=== PATIENT | female | born 1970 | race Hispanic/Latino ===

== ENCOUNTER → 2018-01-11 | Outpatient (CLI) | payer OTHER ==
--- NOTE | 2018-01-11 17:29 | Diagnostic Imaging Report ---
PROCEDURE:X-RAY ABDOMEN - KUB COMPARISON:Patients [facility], DX, ABDOMEN-1VIEW (KUB), 07/15/2017, 15:51. INDICATIONS:KIDNEY STONES FINDINGS: There are no dilated loops of bowel to suggest obstruction. 0.3 cm calcific density projected on the lower pole right renal shadow. Possible additional punctate calculus in the interpolar region of the right kidney. There is no evidence of free air. No acute osseous abnormalities are present. An IUD is again observed to the right of the midline. Large calcified leiomyoma again noted. CONCLUSION: Stable 0.3 cm right lower pole renal calculus. Mo Hernandez M.D. Dictated by: Mo Hernandez M.D. on 01/11/2018 at 17:30 Electronically approved by: Mo Hernandez M.D. on 01/11/2018 at 17:30
== END ==
LOC: RAD 15:58
PROVIDERS: ATTEND Urology
DX: N20.0 Calculus of kidney (principal)
CPT/HCPCS: 74018

== ENCOUNTER → 2018-07-31 | Outpatient (CLI) | payer OTHER ==
--- NOTE | 2018-08-01 09:21 | Diagnostic Imaging Report ---
Exam: Abdominal film Clinical History: Calculus of kidney Comparison: None. DISCUSSION: Frontal view of the abdomen shows a nonobstructive bowel gas pattern with mild amount of retained stool. No dilated, air-filled loops of bowel. 3 mm calcification overlying the right mid kidney and 4 mm calcification overlying the right inferior kidney. Calcified fibroid measuring 7.8 cm. IMPRESSION: Right nephrolithiasis. Signed by: Dr. Musa Urbina M.D. on 08/01/2018 9:18 AM
== END ==
LOC: RAD 16:12
PROVIDERS: ATTEND Urology
DX: N20.0 Calculus of kidney (principal)
CPT/HCPCS: 74018

== ENCOUNTER → 2018-11-13 | Outpatient (CLI) | payer OTHER ==
--- NOTE | 2018-11-13 15:08 | Diagnostic Imaging Report ---
Exam: Abdominal film Clinical History: Right-sided abdominal pain for one year, calculus of kidney Comparison: KUB 07/31/2018 DISCUSSION: Frontal view of the abdomen shows a nonobstructive bowel gas pattern with mild amount of retained stool.There are no dilated, air-filled loops of bowel. Stable 4 mm calcific density projecting over the inferior aspect of the right renal shadow. Stable 3 mm calcific density projecting in the mid aspect of the right renal shadow. No radiopaque densities project over the right renal shadow, expected course of the ureters or bladder. Stable 6.9 x 6.6 cm calcified uterine fibroid projecting in the mid pelvis. Stable T shaped metallic IUD projecting in the mid pelvis. No acute bone abnormality. IMPRESSION: 1. Stable nonobstructing calculi in the right kidney. No new calculi are identified. The staff physician below has personally reviewed this exam on the date of dictation. Signed by: Dr. Fabiano Drew M.D. on 11/13/2018 3:05 PM
== END ==
LOC: RAD 14:17
PROVIDERS: ATTEND Urology
DX: N20.0 Calculus of kidney (principal)
CPT/HCPCS: 74018

== ENCOUNTER → 2019-03-22 | Outpatient (CLI) | payer OTHER ==
--- NOTE | 2019-03-22 18:48 | Diagnostic Imaging Report ---
RADIOGRAPH(S) OF THE ABDOMEN AND PELVIS, 2 view(s) HISTORY: Kidney stones, pain, right COMPARISON: Abdominal radiograph November 13, 2018 FINDINGS: No specific evidence of obstruction or ileus. Stable 3 mm calcification projecting at the interpolar region of the right kidney and 4 mm calcific density projecting near the inferior pole. Evaluation is partially limited by by stool and overlying bowel gas. Stable appearing intrauterine device and degenerating calcified fibroid. IMPRESSION: 1. Stable appearing right renal stones. 2. No significant radiographic change. Signed by: Dr. Joby Vance D.O., M.M.M. on 03/22/2019 6:44 PM
== END ==
LOC: RAD 16:37
PROVIDERS: ATTEND Urology
DX: N20.0 Calculus of kidney (principal)
CPT/HCPCS: 74018

== ENCOUNTER → 2019-05-04 | Day surgery (SDC) | payer OTHER ==
--- NOTE | 2019-05-01 12:14 | Diagnostic Imaging Report ---
Abdomen, 2 views. History: Stones. Comparison: 03/22/2019 Findings: The intestinal gas pattern is nonobstructive. There are small punctate stones overlying the upper pole, mid pole and lower pole of the right kidney. No definite left renal stones identified. Again identified is a large calcified uterine fibroid and an IUD device in the pelvis. The osseous structures are intact. IMPRESSION: Small punctate right renal stones. Signed by: Dr. Caleb Ibrahim DO on 05/01/2019 12:10 PM
[~2019-05-04] MED LIST: AMLODIPINE BESYL5 MG PO; ASPIR 8181 MG PO; CEFTRIAXONE SOD 1 GM/NS 50 ML 50 ML IV ONE; DEXAMETHASONE SOD PHOS INJ 4 MG/ML VIAL ONE; EXCEDRIN MIGRA1 EAC3 PO; FENTANYL CITRATE/PF 100MCG/2 ML INJ ONE; IOPAMIDOL 610MG/1ML 300 MG/ML VIAL IV ONE; LIDOCAINE HCL 2% LOCAL INJ 5 ML SDV VIAL INJ ONE; MIDAZOLAM HCL 2 MG/2 ML VIAL ONE; ONDANSETRON HCL INJ 2MG/ML 2ML 2 MG/ML VIAL ONE; PROPOFOL IV EMULSION 10 MG/ML 20 ML VIAL ONE; SEVOFLURANE INHAL SOLN 250 ML PEN BTL ONE
--- OUTSIDE RECORDS SUMMARY | 2019-05-04 05:41 | XMS REPORT ---
Author Author Marvin Winters Organization [employer] Address Unknown Phone Unavailable Care Team Providers Care Medical Claims Manager Name Role Phone Marvin Winters CP Unavailable Allergies, Adverse Reactions, Alerts Substance Reaction Event Type N.K.D.A. Info Not Available Non Drug Allergy Problems Problem Type Condition Code Onset Dates Condition Status Problem Hypoglycemia, unspecified E16.2 Active Problem IUD (intrauterine device) in place Z97.5 Active Problem Fibroids, submucosal D25.0 Active Problem TB (tuberculosis), treated A15.9 Active Assessment Cervical cancer screening Z12.4 Active Problem Vitamin D deficiency E55.9 Active Assessment Breast cancer screening Z12.39 Active Assessment Screening cholesterol level Z13.220 Active Problem Seasonal allergic rhinitis due to pollen J30.1 Active Problem Cervical cancer screening Z12.4 Active Problem Bilateral carpal tunnel syndrome G56.03 Active Problem Essential hypertension I10 Active Problem Breast cancer screening Z12.39 Active Assessment Fibroids, submucosal D25.0 Active Assessment Bilateral carpal tunnel syndrome G56.03 Active Assessment Seasonal allergic rhinitis due to pollen J30.1 Active Assessment Vitamin D deficiency E55.9 Active Assessment Carpal tunnel syndrome, unspecified upper limb G56.00 Active Assessment Annual physical exam Z00.00 Active Assessment IUD (intrauterine device) in place Z97.5 Active Problem Personal history of gestational diabetes Z86.32 Active Assessment Personal history of gestational diabetes Z86.32 Active Problem Carpal tunnel syndrome, unspecified upper limb G56.00 Active Medications Medication Code System Code Instructions Start Date End Date Status Dosage Gabapentin [facility] 64661929167 100 MG Orally bedtime May 09, 2018 Active 2 capsules Fexofenadine HCl [facility] 25243761224 180 MG Orally Once a day Active 1 tablet as needed Amlodipine Besylate [facility] 33010019985 5 MG Orally Once a day Active 1 tablet Gabapentin [facility] 44986609827 300 MG Orally once every night May 09, 2018 Inactive 1 capsule Excedrin Migraine [facility] 80188809744 250-250-65 MG Orally every 6 hrs Active 2 tablets as needed Tramadol HCl NDC 0 asd needed for pain Active not defined Fluticasone Propionate NDC 11127695884 50 MCG/ACT Nasally Once a day January 16, 2018 Active 1 spray in each nostril Vital Signs Date/Time: May 09, 2018 BMI 31.56 Index Weight 151 lbs Height 58 in Temperature 97.4 F Blood Pressure Diastolic 99 mm Hg Blood Pressure Systolic 142 mm Hg Results Name Result Date Reference Range Unit Abnormality Flag LIPID PANEL ----TRIGLYCERIDES 132 [id number] <150 mg/dL N ----LDL-CHOLESTEROL 124 48176163 mg/dL (calc) H ----CHOL/HDLC RATIO 3.4 32986509 <5.0 (calc) N ----NON HDL CHOLESTEROL 149 [id number] <130 mg/dL (calc) H ----CHOLESTEROL, TOTAL 212 28070907 <200 mg/dL H ----HDL CHOLESTEROL 63 70567835 >50 mg/dL N CBC (INCLUDES DIFF/PLT) ----ABSOLUTE EOSINOPHILS 250 91893189 15-500 cells/uL N ----MCV 88.0 65521296 80.0-100.0 fL N ----HEMATOCRIT 43.2 34701782 35.0-45.0 % N ----ABSOLUTE MONOCYTES 589 24058518 200-950 cells/uL N ----MCHC 32.2 13336895 32.0-36.0 g/dL N ----ABSOLUTE LYMPHOCYTES 1651 68909909 850-3900 cells/uL N ----MCH 28.3 39099420 27.0-33.0 pg N ----ABSOLUTE NEUTROPHILS 3859 22734750 4030-8231 cells/uL N ----MONOCYTES 9.2 08538280 % N ----WHITE BLOOD CELL COUNT 6.4 08577559 3.8-10.8 Thousand/uL N ----LYMPHOCYTES 25.8 30196722 % N ----NEUTROPHILS 60.3 31338051 % N ----HEMOGLOBIN 13.9 05812942 11.7-15.5 g/dL N ----ABSOLUTE BASOPHILS 51 19353052 0-200 cells/uL N ----RED BLOOD CELL COUNT 4.91 66638310 3.80-5.10 Million/uL N ----BASOPHILS 0.8 79129547 % N ----MPV 11.0 20180509 7.5-12.5 fL N ----EOSINOPHILS 3.9 20180509 % N ----RDW 13.4 20180509 11.0-15.0 % N ----PLATELET COUNT 283 20180509 140-400 Thousand/uL N COMPREHENSIVE METABOLIC PANEL ----ALBUMIN/GLOBULIN RATIO 1.5 20180509 1.0-2.5 (calc) N ----GLOBULIN 3.0 20180509 1.9-3.7 g/dL (calc) N ----ALKALINE PHOSPHATASE 89 20180509 33-115 U/L N ----BILIRUBIN, TOTAL 0.4 20180509 0.2-1.2 mg/dL N ----CHLORIDE 103 20180509 98-110 mmol/L N ----ALT 14 20180509 6-29 U/L N ----POTASSIUM 4.8 20180509 3.5-5.3 mmol/L N ----AST 16 20180509 10-35 U/L N ----SODIUM 140 20180509 135-146 mmol/L N ----BUN/CREATININE RATIO NOT APPLICABLE 96961198 6-22 (calc) ----eGFR 131 20180509 > OR=60 mL/min/1.73m2 N ----CALCIUM 9.3 20180509 8.6-10.2 mg/dL N ----CARBON DIOXIDE 28 20180509 20-31 mmol/L N ----ALBUMIN 4.6 20180509 3.6-5.1 g/dL N ----PROTEIN, TOTAL 7.6 20180509 6.1-8.1 g/dL N ----GLUCOSE 97 20180509 65-99 mg/dL N ----UREA NITROGEN (BUN) 10 20180509 7-25 mg/dL N ----CREATININE 0.54 20180509 0.50-1.10 mg/dL N ----eGFR NON-AFR. COMORAN 113 20180509 > OR=60 mL/min/1.73m2 N VITAMIN D,25-OH,TOTAL,IA ----VITAMIN D,25-OH,TOTAL,IA 28 20180509 30-100 ng/mL L Summary Purpose [employer] Submission
--- OUTSIDE RECORDS SUMMARY | 2019-05-04 05:41 | XMS REPORT ---
Author Author Marvin Winters Organization [employer] Address Unknown Phone Unavailable Care Team Providers Care Ehs Teacher Name Role Phone Marvin Winters CP Unavailable Allergies, Adverse Reactions, Alerts Substance Reaction Event Type N.K.D.A. Info Not Available Non Drug Allergy Problems Problem Type Condition Code Onset Dates Condition Status Assessment Fibroids, submucosal D25.0 Active Problem IUD (intrauterine device) in place Z97.5 Active Problem Fibroids, submucosal D25.0 Active Problem Bilateral carpal tunnel syndrome G56.03 Active Problem Cervical cancer screening Z12.4 Active Problem Essential hypertension I10 Active Problem Personal history of gestational diabetes Z86.32 Active Problem Hypoglycemia, unspecified E16.2 Active Problem Breast cancer screening Z12.39 Active Problem Carpal tunnel syndrome, unspecified upper limb G56.00 Active Assessment Essential hypertension I10 Active Assessment Acute vaginitis N76.0 Active Assessment Other specified bacterial agents as the cause of diseases classified elsewhere B96.89 Active Assessment Hypoglycemia, unspecified E16.2 Active Medications Medication Code System Code Instructions Start Date End Date Status Dosage Gabapentin [facility] 28462971417 100 MG Active TAKE 2 CAPSULES BY MOUTH EVERY NIGHT Atorvastatin Calcium [facility] [address]-19 10 mg PO every day (qd) February 02, 2016 Active 1 tablet Metronidazole [facility] [address]-43 500 MG Orally every 8 hrs Active 1 tablet Ciprofloxacin HCl [facility] [address]-80 500 MG Orally Twice a day Active 1 tablet Excedrin Migraine [facility] [address]-50 250-250-65 MG Orally every 6 hrs Active 2 tablets as needed Amlodipine Besylate [facility] [address]-77 5 MG Orally Once a day April 08, 2017 Active 1 tablet Vital Signs Date/Time: April 08, 2017 BMI 31.56 Index Weight 151 lbs Height 58 in Temperature 96.8 F Blood Pressure Diastolic 104 mm Hg Blood Pressure Systolic 146 mm Hg Results No Known Results Summary Purpose [employer] Submission
--- OUTSIDE RECORDS SUMMARY | 2019-05-04 05:41 | XMS REPORT ---
Author Author Marvin Winters Organization [employer] Address Unknown Phone Unavailable Care Team Providers Care Project Engineer Chemicals Name Role Phone Marvin Winters CP Unavailable Allergies, Adverse Reactions, Alerts Substance Reaction Event Type N.K.D.A. Info Not Available Non Drug Allergy Problems Problem Type Condition Code Onset Dates Condition Status Problem Fibroids, submucosal D25.0 Active Problem Bilateral carpal tunnel syndrome G56.03 Active Problem IUD (intrauterine device) in place Z97.5 Active Problem Seasonal allergic rhinitis due to pollen J30.1 Active Problem TB (tuberculosis), treated A15.9 Active Problem Seasonal allergies J30.2 Active Problem Breast cancer screening Z12.39 Active Problem Cervical cancer screening Z12.4 Active Problem Vitamin D deficiency E55.9 Active Problem Essential hypertension I10 Active Problem Personal history of gestational diabetes Z86.32 Active Assessment Needs flu shot Z23 Active Problem Carpal tunnel syndrome, unspecified upper limb G56.00 Active Assessment Seasonal allergies J30.2 Active Problem Hypoglycemia, unspecified E16.2 Active Medications Medication Code System Code Instructions Start Date End Date Status Dosage Loratadine [facility] 64218857753 10 MG Orally Once a day Sep 06, 2018 Dec 05, 2018 Active 1 tablet Fluticasone Propionate [facility] 83966794060 50 MCG/ACT Nasally Once a day January 16, 2018 Active 1 spray in each nostril Amlodipine Besylate [facility] 60925659780 5 MG Orally Once a day Active 1 tablet Excedrin Migraine ND 68046932128 250-250-65 MG Orally every 6 hrs Active 2 tablets as needed Caltrate 600 [facility] [address]-36 Active not defined Gabapentin [facility] 67380043264 100 MG Orally bedtime May 09, 2018 Active 2 capsules Vital Signs Date/Time: Sep 06, 2018 BMI 32.29 Index Weight 154.5 lbs Height 58 in Temperature 98.8 F Blood Pressure Diastolic 93 mm Hg Blood Pressure Systolic 134 mm Hg Results No Known Results Immunizations Vaccine Administration Date 2017 Single Syringe Fluecelvax Quad Sep 06, 2018 Summary Purpose [employer] Submission
--- OUTSIDE RECORDS SUMMARY | 2019-05-04 05:41 | XMS REPORT ---
Author Author Marvin Winters Organization [employer] Address Unknown Phone Unavailable Care Team Providers Care Conservation Agent Name Role Phone Marvin Winters CP Unavailable Allergies No Known Allergies Problems Problem Type Condition Code Onset Dates [...] Instructions Start Date End Date Status Dosage Fluticasone Propionate [facility] 74054800120 50 MCG/ACT Nasally Once a day January 16, 2018 Active 1 spray in each nostril Results No Known Results Summary Purpose [employer] Submission
--- OUTSIDE RECORDS SUMMARY | 2019-05-04 05:41 | XMS REPORT ---
Author Author Marvin Winters Organization [employer] Address Unknown Phone Unavailable Care Team Providers Care Kindergarten Assistant Name Role Phone Marvin Winters CP Unavailable Allergies, Adverse Reactions, Alerts Substance Reaction Event Type N.K.D.A. Info Not Available Non Drug Allergy Problems Problem Type Condition Code Onset Dates Condition Status Problem Hypoglycemia, unspecified E16.2 Active Problem IUD (intrauterine device) in place Z97.5 Active Problem Fibroids, submucosal D25.0 Active Problem TB (tuberculosis), treated A15.9 Active Problem Vitamin D deficiency E55.9 Active Problem Seasonal allergic rhinitis due to pollen J30.1 Active Problem Cervical cancer screening Z12.4 Active Problem Bilateral carpal tunnel syndrome G56.03 Active Problem Essential hypertension I10 Active Problem Breast cancer screening Z12.39 Active Assessment Essential hypertension I10 Active Assessment Seasonal allergic rhinitis due to pollen J30.1 Active Problem Personal history of gestational diabetes Z86.32 Active Problem Carpal tunnel syndrome, unspecified upper limb G56.00 Active Medications Medication Code System Code Instructions Start Date End Date Status Dosage Fexofenadine HCl ND 68091159286 180 MG Orally Once a day January 16, 2018 February 15, 2018 Active 1 tablet as needed Excedrin Migraine ND 35051223594 250-250-65 MG Orally every 6 hrs Active 2 tablets as needed Amlodipine Besylate ND 55033051923 5 MG Orally Once a day Active 1 tablet Fluticasone Propionate ND 82420597757 50 MCG/ACT Nasally Once a day January 16, 2018 Active 1 spray in each nostril Tramadol HCl NDC 0 asd needed for pain Active not defined Gabapentin ND 44934530371 300 MG Orally once every night Active 1 capsule Vital Signs Date/Time: January 16, 2018 BMI 32.39 Index Weight 155 lbs Height 58 in Temperature 98.2 F Blood Pressure Diastolic 92 mm Hg Blood Pressure Systolic 125 mm Hg Results No Known Results Summary Purpose [employer]Clinical[employer] Submission
--- OUTSIDE RECORDS SUMMARY | 2019-05-04 05:41 | XMS REPORT ---
Author Author Marvin Winters Organization [employer] Address Unknown Phone Unavailable Care Team Providers Care Machine Gun Mechanic Name Role Phone Marvin Winters CP Unavailable Allergies, Adverse Reactions, Alerts Substance Reaction Event Type N.K.D.A. Info Not Available Non Drug Allergy Problems Problem Type Condition Code Onset Dates Condition Status Problem Carpal tunnel syndrome, unspecified upper limb G56.00 Active Problem Fibroids, submucosal D25.0 Active Problem Hypoglycemia, unspecified E16.2 Active Problem Vitamin D deficiency E55.9 Active Problem Essential hypertension I10 Active Problem TB (tuberculosis), treated A15.9 Active Problem Bilateral carpal tunnel syndrome G56.03 Active Problem IUD (intrauterine device) in place Z97.5 Active Problem Breast cancer screening Z12.39 Active Problem Cervical cancer screening Z12.4 Active Assessment TB (tuberculosis), treated A15.9 Active Assessment Bilateral carpal tunnel syndrome G56.03 Active Assessment Essential hypertension I10 Active Problem Personal history of gestational diabetes Z86.32 Active Medications Medication Code System Code Instructions Start Date End Date Status Dosage Tramadol HCl NDC 0 asd needed for pain Active not defined Gabapentin ND 44881826656 300 MG Orally once every night Active 1 capsule Amlodipine Besylate [facility] 18610815339 5 MG Orally Once a day Active 1 tablet Excedrin Migraine [facility] 60283044605 250-250-65 MG Orally every 6 hrs Active 2 tablets as needed Vital Signs Date/Time: Oct 17, 2017 BMI 31.97 Index Weight 153 lbs Height 58 in Temperature 98.1 F Blood Pressure Diastolic 94 mm Hg Blood Pressure Systolic 132 mm Hg Results No Known Results Summary Purpose [employer]ClinicalWorks Submission
--- OUTSIDE RECORDS SUMMARY | 2019-05-04 05:41 | XMS REPORT ---
Author Author Marvin Winters Organization [employer] Address Unknown Phone Unavailable Care Team Providers Care Chocolate Finisher Operator Name Role Phone Marvin Winters CP Unavailable Allergies, Adverse Reactions, Alerts Substance Reaction Event Type N.K.D.A. Info Not Available Non Drug Allergy Problems Problem Type Condition Code Onset Dates Condition Status Problem Personal history of gestational diabetes Z86.32 Active Problem Hypoglycemia, unspecified E16.2 Active Problem Carpal tunnel syndrome, unspecified upper limb G56.00 Active Problem Essential hypertension I10 Active Problem Breast cancer screening Z12.39 Active Problem Vitamin D deficiency E55.9 Active Problem IUD (intrauterine device) in place Z97.5 Active Problem Fibroids, submucosal D25.0 Active Problem Cervical cancer screening Z12.4 Active Problem Bilateral carpal tunnel syndrome G56.03 Active Assessment Bilateral carpal tunnel syndrome G56.03 Active Assessment Right flank pain R10.9 Active Assessment Hypoglycemia, unspecified E16.2 Active Assessment Essential hypertension I10 Active Medications Medication Code System Code Instructions Start Date End Date Status Dosage Tramadol HCl [facility] 19191417287 50 mg Orally daily as needed Sep 14, 2017 Active 1 tablet as needed Excedrin Migraine ND 03086785483 250-250-65 MG Orally every 6 hrs Active 2 tablets as needed Gabapentin ND 40555626551 300 MG Orally once every night Active 1 capsule Amlodipine Besylate ND 47365061310 5 MG Orally Once a day April 08, 2017 Active 1 tablet Vital Signs Date/Time: Aug 15, 2017 BMI 31.97 Index Weight 153 lbs Height 58 in Temperature 97.9 F Blood Pressure Diastolic 89 mm Hg Blood Pressure Systolic 128 mm Hg Results No Known Results Immunizations Vaccine Administration Date Afluria (IIV4) Flu Vacc IM Aug 15, 2017 Summary Purpose eClinicalWorks Submission
--- OUTSIDE RECORDS SUMMARY | 2019-05-04 05:41 | XMS REPORT ---
Author Author Marvin Winters Organization [employer] Address Unknown Phone Unavailable Care Team Providers Care Forestry Foreman Name Role Phone Marvin Winters CP Unavailable Allergies, Adverse Reactions, Alerts Substance Reaction Event Type N.K.D.A. Info Not Available Non Drug Allergy Problems Problem Type Condition Code Onset Dates Condition Status Problem Fibroids, submucosal D25.0 Active Problem Hypoglycemia, unspecified E16.2 Active Problem IUD (intrauterine device) in place Z97.5 Active Problem Essential hypertension I10 Active Problem Bilateral carpal tunnel syndrome G56.03 Active Problem Vitamin D deficiency E55.9 Active Problem Carpal tunnel syndrome, unspecified upper limb G56.00 Active Problem Personal history of gestational diabetes Z86.32 Active Problem Cervical cancer screening Z12.4 Active Problem Breast cancer screening Z12.39 Active Assessment Intramural leiomyoma of uterus D25.1 Active Assessment Right flank pain R10.9 Active Assessment HTN (hypertension), benign I10 Active Assessment Vitamin D deficiency E55.9 Active Assessment Blurred vision, bilateral H53.8 Active Medications Medication Code System Code Instructions Start Date End Date Status Dosage Gabapentin [facility] 72366253776 100 MG Active TAKE 2 CAPSULES BY MOUTH EVERY NIGHT Amlodipine Besylate [facility] [address]-63 5 MG Orally Once a day April 08, 2017 Active 1 tablet Tramadol HCl [facility] [address]-28 50 MG Orally twice a day (bid) as needed (prn) Jul 08, 2017 Aug 07, 2017 Active 1 tablet as needed Excedrin Migraine [facility] [address]-72 250-250-65 MG Orally every 6 hrs Active 2 tablets as needed Vital Signs Date/Time: Jul 08, 2017 BMI 31.35 Index Weight 150 lbs Height 58 in Temperature 98.2 F Blood Pressure Diastolic 98 mm Hg Blood Pressure Systolic 128 mm Hg Results No Known Results Summary Purpose eClinicalWorks Submission
--- OUTSIDE RECORDS SUMMARY | 2019-05-04 05:41 | XMS REPORT ---
Author Author Marvin Winters Organization [employer] Address Unknown Phone Unavailable Care Team Providers Care Casting Machine Operator Name Role Phone Marvin Winters CP Unavailable Allergies, Adverse Reactions, Alerts Substance Reaction Event Type N.K.D.A. Info Not Available Non Drug Allergy Problems Problem Type Condition Code Onset Dates Condition Status Problem Breast cancer screening Z12.39 Active Problem Cervical cancer screening Z12.4 Active Problem Bilateral carpal tunnel syndrome G56.03 Active Problem Lactose intolerance in adult E73.9 Active Assessment Hypoglycemia, unspecified E16.2 Active Problem Seasonal allergies J30.2 Active Problem Primary insomnia F51.01 Active Problem Vitamin D deficiency E55.9 Active Problem Essential hypertension I10 Active Problem Seasonal allergic rhinitis due to pollen J30.1 Active Problem TB (tuberculosis), treated A15.9 Active Assessment Primary insomnia F51.01 Active Assessment Lactose intolerance in adult E73.9 Active Assessment History of carpal tunnel surgery Z98.890 Active Assessment Essential hypertension I10 Active Problem Carpal tunnel syndrome, unspecified upper limb G56.00 Active Problem Hypoglycemia, unspecified E16.2 Active Problem Fibroids, submucosal D25.0 Active Problem Personal history of gestational diabetes Z86.32 Active Problem IUD (intrauterine device) in place Z97.5 Active Medications Medication Code System Code Instructions Start Date End Date Status Dosage Fluticasone Propionate [facility] 86872971001 50 MCG/ACT Nasally Once a day January 16, 2018 Active 1 spray in each nostril Caltrate 600 [facility] [address]-31 Active not defined Gabapentin [facility] 75708897244 100 MG Orally bedtime May 09, 2018 Active 2 capsules Aspirin Adult Low Dose [facility] [address]-77 81 MG Orally Once a day as needed Active 1 tablet Amlodipine Besylate [facility] 55836673657 5 MG Orally Once a day Active 1 tablet Excedrin Migraine [facility] 53474557775 250-250-65 MG Orally every 6 hrs Active 2 tablets as needed Vital Signs Date/Time: Jan 03, 2019 BMI 31.87 Index Weight 152.5 lbs Height 58 in Temperature 98.5 F Blood Pressure Diastolic 81 mm Hg Blood Pressure Systolic 122 mm Hg Results No Known Results Summary Purpose eClinicalWorks Submission
--- OUTSIDE RECORDS SUMMARY | 2019-05-04 05:41 | XMS REPORT | Continuity of Care Document ---
Author Author [employer] [facility] Address Unknown Phone Unavailable Care Team Providers Care Facilities Maintenance Supervisor Name Role Phone Subtextual Information Exchange Unavailable Unavailable Problems Problem Status Onset Date Classification Date Reported Comments Source Fibroids, submucosal Active Problem 01/07/2019 Enyolette Aquino IUD in place Active Problem 01/07/2019 Enyolette Aquino Bilateral carpal tunnel syndrome Active Problem 01/07/2019 Enyolette Aquino Cervical cancer screening Active Problem 01/07/2019 Estuardo Aquino Essential hypertension Active Problem 01/07/2019 Estuardo Aquino Personal history of gestational diabetes Active Problem 01/07/2019 Estuardo Aquino Hypoglycemia, unspecified Active Diagnosis 01/07/2019 Estuardo Aquino Breast cancer screening Active Problem 01/07/2019 Estuardo Aquino Carpal tunnel syndrome, unspecified upper limb Active Problem 01/07/2019 Estuardo Aquino Acute vaginitis Active Diagnosis 04/12/2017 Estuardo Aquino Other specified bacterial agents as the cause of diseases classified elsewhere Active Diagnosis 04/12/2017 Estuardo Aquino Vitamin D deficiency Active Problem 01/07/2019 Estuardo Aquino Intramural leiomyoma of uterus Active Diagnosis 07/19/2017 Estuardo Aquino Right flank pain Active Diagnosis 08/20/2017 Estuardo Aquino HTN , benign Active Diagnosis 07/19/2017 Estuardo Aquino Blurred vision, bilateral Active Diagnosis 07/19/2017 Estuardo Aquino Seasonal allergic rhinitis due to pollen Active Problem 01/07/2019 Estuardo Aquino TB , treated Active Problem 01/07/2019 Estuardo Aquino Seasonal allergies Active Problem 01/07/2019 Estuardo Aquino Screening cholesterol level Active Diagnosis 05/16/2018 Estuardo Aquino Needs flu shot Active Diagnosis 09/13/2018 Estuardo Aquino Lactose intolerance in adult Active Problem 01/07/2019 Estuardo Aquino Primary insomnia Active Problem 01/07/2019 Estuardo Aquino History of carpal tunnel surgery Active Diagnosis 01/07/2019 Estuardo Aquino Encounter to establish care Active Diagnosis 12/13/2016 Estuardo Aquino Right lower quadrant abdominal pain Active Diagnosis 01/09/2017 Estuardo Aquino Right ureteral stone Active Diagnosis 01/09/2017 Estuardo Aquino Nausea Active Diagnosis 12/29/2016 Estuardo Aquino Right lower quadrant pain Active Diagnosis 12/29/2016 Estuardo Aquino Microhematuria Active Diagnosis 12/29/2016 Estuardo Aquino Medications Medication Details Route Status Patient Instructions Ordering Provider Order Date Source Loratadine 1 tablet Orally Active 10 MG Orally Once a day [facility] 09/06/2018 Estuardo Aquino Gabapentin 2 capsules Orally Active 100 MG Orally bedtime [facility] 05/09/2018 Estuardo Aquino Gabapentin 1 capsule Orally Active 300 MG Orally once every night [facility] 05/09/2018 Estuardo Aquino Fluticasone Propionate 1 spray in each nostril Nasally Active 50 MCG/ACT Nasally Once a day [facility] 01/16/2018 Estuardo Aquino Fexofenadine HCl 1 tablet as needed Orally Active 180 MG Orally Once a day [facility] 01/16/2018 Estuardo Aquino Tramadol HCl 1 tablet as needed Orally Active 50 mg Orally daily as needed [facility] 09/14/2017 Estuardo Aquino Tramadol HCl 1 tablet as needed Orally Active 50 MG Orally twice a day (bid) as needed (prn) [facility] 07/08/2017 Estuardo Aquino Amlodipine Besylate 1 tablet Orally Active 5 MG Orally Once a day [facility] 04/08/2017 Estuardo Aquino Amlodipine Besylate 1 tablet Orally Active 5 MG Orally Once a day [facility] 04/08/2017 Estuardo Aquino Cipro 1 tablet Orally Active 500 MG Orally Twice a day [facility] 12/27/2016 Estuardo Aquino Flagyl 1 tablet Orally Active 500 MG Orally every 8 hrs [facility] 12/27/2016 Estuardo Aquino Gabapentin 2 capsule Orally Active 100 MG Orally once every night [facility] 12/06/2016 Estuardo Aquino Atorvastatin Calcium 1 tablet PO Active 10 mg PO every day (qd) [facility] 02/02/2016 Estuardo Aquino Gabapentin TAKE 2 CAPSULES BY MOUTH EVERY NIGHT NA Active 100 MG [facility]ron[facility] 1 tablet Orally Active 500 MG Orally every 8 hrs [facility] Est[facility] Ciprofloxacin HCl 1 tablet Orally Active 500 MG Orally Twice a day [facility] Excedrin Migraine 2 tablets as needed Orally Active 250-250-65 MG Orally every 6 hrs [facility] Excedrin Migraine 2 tablets as needed Orally Active 250-250-65 MG Orally every 6 hrs [facility] Gabapentin 1 capsule Orally Active 300 MG Orally once every night [facility] Estuardo [facility] Tramadol HCl not defined NA Active asd needed for pain [facility] Amlodipine Besylate 1 tablet Orally Active 5 MG Orally Once a day [facility] Fexofenadine HCl 1 tablet as needed Orally Active 180 MG Orally Once a day [facility] Caltrate 600 not defined NA Active [facility] Aspirin Adult Low Dose 1 tablet Orally Active 81 MG Orally Once a day as needed [facility] Allergies, Adverse Reactions, Alerts Substance Category Reaction Severity Reaction type Status Date Reported Comments Source N.K.D.A. Adverse Reaction Info Not Available Adverse Reaction Active 01/03/2019 Estuardo Aquino Immunizations Immunization Date Given Site Status Last Updated Comments Source 2017 Single Syringe Fluecelvax Quad 09/06/2018 completed Estuardo Aquino Afluria (IIV4) Flu Vacc IM 08/15/2017 completed Estuardo Aquino Torodol 30 mg 12/27/2016 completed Estuardo Aquino Results No Data Provided for This Section Pathology Reports No Data Provided for This Section Diagnostic Reports No Data Provided for This Section Consultation Notes No Data Provided for This Section Discharge Summaries No Data Provided for This Section History and Physicals No Data Provided for This Section Vital Signs Vital Sign Value Date Comments Source Weight 152.5 01/03/2019 Enoneydaet [facility] Height 58 01/03/2019 Sadaet [facility] Temperature Oral (F) 98.5 F 01/03/2019 Enoneydaet Rahim Diastolic (mm Hg) 81 01/03/2019 Enoneydaet Rasdm Systolic (mm Hg) 122 01/03/2019 [facility] Weight 154.5 09/06/2018 Enayet Rahim Height 58 09/06/2018 Enayet Rahim Temperature Oral (F) 98.8 F 09/06/2018 Enayet Rahim Diastolic (mm Hg) 93 09/06/2018 Enayet Rahim Systolic (mm Hg) 134 09/06/2018 Enayet Rahim Weight 151 05/09/2018 Enayet Rahim Height 58 05/09/2018 Enayet Rahim Temperature Oral (F) 97.4 F 05/09/2018 Enayet Rahim Diastolic (mm Hg) 99 05/09/2018 Enayet Rahim Systolic (mm Hg) 142 05/09/2018 Enayet Rahim Weight 155 01/16/2018 Enayet Rahim Height 58 01/16/2018 Enayet Rahim Temperature Oral (F) 98.2 F 01/16/2018 Enayet Rahim Diastolic (mm Hg) 92 01/16/2018 Enayet Rahim Systolic (mm Hg) 125 01/16/2018 Enayet Rahim Weight 153 10/17/2017 Enayet Rahim Height 58 10/17/2017 Enayet Rahim Temperature Oral (F) 98.1 F 10/17/2017 Enayet Rahim Diastolic (mm Hg) 94 10/17/2017 Enayet Rahim Systolic (mm Hg) 132 10/17/2017 Enayet Rahim Weight 153 08/15/2017 Enayet Rahim Height 58 08/15/2017 Enayet Rahim Temperature Oral (F) 97.9 F 08/15/2017 Enayet Rahim Diastolic (mm Hg) 89 08/15/2017 Enayet Rahim Systolic (mm Hg) 128 08/15/2017 Enayet Rahim Weight 150 07/08/2017 Enayet Rahim Height 58 07/08/2017 Enayet Rahim Temperature Oral (F) 98.2 F 07/08/2017 Enayet Rahim Diastolic (mm Hg) 98 07/08/2017 Enayet Rahim Systolic (mm Hg) 128 07/08/2017 Enayet Rahim Weight 151 04/08/2017 Enayet Rahim Height 58 04/08/2017 Enayet Rahim Temperature Oral (F) 96.8 F 04/08/2017 Enayet Rahim Diastolic (mm Hg) 104 04/08/2017 Enayet Rahim Systolic (mm Hg) 146 04/08/2017 Enayet Rahim Weight 152 01/06/2017 Enayet Rahim Height 58 01/06/2017 Enayet Rahim Temperature Oral (F) 97.8 F 01/06/2017 Enayet Rahim Diastolic (mm Hg) 96 01/06/2017 Enayet Rahim Systolic (mm Hg) 136 01/06/2017 Enayet Rahim Weight 154.5 12/27/2016 Enayet Rahim Height 58 12/27/2016 Enayet Rahim Temperature Oral (F) 97.0 F 12/27/2016 Enayet Rahim Diastolic (mm Hg) 106 12/27/2016 Enayet Rahim Systolic (mm Hg) 177 12/27/2016 Enayet Rahim Weight 154 12/06/2016 Enayet Rahim Height 58 12/06/2016 Enayet Rahim Temperature Oral (F) 98.9 F 12/06/2016 Enayet Rahim Diastolic (mm Hg) 96 12/06/2016 Enayet Rahim Systolic (mm Hg) 145 12/06/2016 Enayet Rahim Encounters Location Location Details Encounter Type Encounter Number Reason For Visit Attending Provider ADM Date DC Date Status Source [place], [place] Sick Visit [id number] 12/06/2016 12/06/2016 Estuardo Aquino [place], [place] Sick Visit [id number] 12/06/2016 12/06/2016 Estuardo Aquino MD, [place] Sick Visit [id number] 12/06/2016 12/06/2016 Estuardo Aquino MD, [place] Sick Visit [id number] 12/27/2016 12/27/2016 Estuardo Aquino MD, [place] Sick Visit [id number] 12/27/2016 12/27/2016 Estuardo Aqu[facility], [facility] [id number] 01/06/2017 01/06/2017 Estuardo Aquino Procedures No Data Provided for This Section Assessment and Plan No Data Provided for This Section Plan of Care No Data Provided for This Section Social History Social History Date Source Social History ElementQualifiersDate Reported Tobacco Use: . Are you a: never smoker January 06, 2017 Use of recreational / street drugs? . Answer: No January 06, 2017 Do you have pets? . Status: No January 06, 2017 Marital Status: . January 06, 2017 Caffeine intake? . Status: Yes, What type: Coffee, 1 - 2 cup(s) a day January 06, 2017 Do you exercise? . Answer: No January 06, 2017 Do you drink alcohol? . Status: No January 06, 2017 Travel outside [place]: . 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
--- OUTSIDE RECORDS SUMMARY | 2019-05-04 05:42 | XMS REPORT ---
Author Author [facility] Address Unknown Phone Unavailable Care Team Providers Care Manager Heart Name Role Phone DEDE PAREKH Unavailable Unavailable Payers Payer Name Policy Type Policy Number Effective Date Expiration Date Problems This patient has no known problems. Allergies, Adverse Reactions, Alerts Allergy Name Allergy Type Status Severity Reaction(s) Onset Date Inactive Date Treating Clinician Comments No Known Allergies DA Active U 2018-05-23 00:00:00 Medications This patient has no known medications. Results Test Description Test Time Test Comments Text Results Atomic Results Result Comments ABDOMEN-1VIEW (KUB) 2019-05-01 12:07:00 [place] [address] Patient Name: ARTI RODRÍGUEZ MR #: [id number] : 1970 Age/Sex: 48/F Req #: [id number] Adm Physician: Ordered by: DEDE PAREKH MD Report #: [id number] Location: OR Room/Bed: Procedure: [id number] DX/ABDOMEN-1VIEW (KUB) Exam Date: 05/01/19 Exam Time: 09 REPORT STATUS: Signed Abdomen, 2 views. History: Stones. Comparison: 03/22/2019 Findings: The intestinal gas pattern is nonobstructive. There are small punctate stones overlying the upper pole, mid pole and lower pole of the right kidney. No definite left renal stones identified. Again identified is a large calcified uterine fibroid and an IUD device in the pelvis. The osseous structures are intact. IMPRESSION: Small punctate right renal stones. Signed by: Dr. Maranda Ibrahim DO on 05/01/2019 12:10 PM Dictated By: MARANDA IBRAHIM DO 1210 Transcribed By: HERIBERTO on 05/01/19 1210 COPY TO: DEDE PAREKH MD ABDOMEN-1VIEW (KU) 2019-03-22 18:41:00 [place] [address] Patient Name: ARTI RODRÍGUEZ MR #: [id number] : 1970 Age/Sex: 48/F Req #: [id number] Adm Physician: Ordered by: DEDE PAREKH MD Report #: [id number] Location: [facility] Room/Bed: Procedure: [id number] DX/ABDOMEN-1VIEW (KUB) Exam Date: 03/22/19 Exam Time: 1738 REPORT STATUS: Signed RADIOGRAPH(S) OF THE ABDOMEN AND PELVIS, 2 view(s) HISTORY: Kidney stones, pain, right COMPARISON: Abdominal radiograph November 13, 2018 FINDINGS: No specific evidence of obstruction or ileus. Stable 3 mm calcification projecting at the interpolar region of the right kidney and 4 mm calcific density projecting near the inferior pole. Evaluation is partially limited by by stool and overlying bowel gas. Stable appearing intrauterine device and degenerating calcified fibroid. IMPRESSION: 1. Stable appearing right renal stones. 2. No significant radiographic change. Signed by: Dr. Fanta Vance D.O., M.M.M. on 03/22/2019 6:44 PM Dictated By: FANTA VANCE DO 43 Transcribed By: HERIBERTO on 03/22/191843 COPY TO: DEDE PAREKH MD ABDOMEN-1VIEW (KUB) 2018-11-13 15:01:00 [place] [address] Patient Name: ARTI RODRÍGUEZ MR #: [id number] : 1970 Age/Sex: 48/F Req #: [id number] Adm Physician: Ordered by: DEDE PAREKH MD Report #: [id number] Location: [facility] Room/Bed: Procedure: [id number] DX/ABDOMEN-1VIEW (KUB) Exam Date: 11/13/18 Exam Time: 1435 REPORT STATUS: Signed Exam: Abdominal film Clinical History: Right-sided abdominal pain for one year, calculus of kidney Comparison: KUB 07/31/2018 DISCUSSION: Frontal view of the abdomen shows a nonobstructive bowel gas pattern with mild amount of retained stool.There are no dilated, air-filled loops of bowel. Stable 4 mm calcific density projecting over the inferior aspect of the right renal shadow. Stable 3 mm calcific density projecting in the mid aspect of the right renal shadow. No radiopaque densities project over the right renal shadow, expected course of the ureters or bladder. Stable 6.9 x 6.6 cm calcified uterine fibroid projecting in the mid pelvis. Stable T shaped metallic IUD projecting in the mid pelvis. No acute bone abnormality. IMPRESSION: 1. Stable nonobstructing calculi in the right kidney. No new calculi are identified. The staff physician below has personally reviewed this exam on the date of dictation. Signed by: Dr. Laura Drew M.D. on 11/13/2018 3:05 PM Dicta bello By: LAURA DREW MD 1507 Transcribed By: HERIBERTO on 11/13/18 1509 COPY TO: DEDE PAREKH MD ABDOMEN-1VIEW (KUB) 2018-08-01 09:16:00 [place] [address] Patient Name: ARTI RODRÍGUEZ MR #: [id number] : 1970 Age/Sex: 48/F Req #: [id number] Adm Physician: Ordered by: DEDE PAREKH MD Report #: [id number] Location: [facility] Room/Bed: Procedure: [id number] DX/ABDOMEN-1VIEW (KUB) Exam Date: 07/31/18 Exam Time: 1634 REPORT STATUS: Signed Exam: Abdominal film Clinical History: Calculus of kidney Comparison: None. DISCUSSION: Frontal view of the abdomen shows a nonobstructive bowel gas pattern with mild amount of retained stool. No dilated, air-filled loops of bowel. 3 mm calcification overlying the right mid kidney and 4 mm calcification overlying the right inferior kidney. Calcified fibroid measuring 7.8 cm. IMPRESSION: Right nephrolithiasis. Signed by: Dr. Alicia Soler M.D. on 08/01/2018 9:18 AM Dictated By: ALICIA SOLER MD 7 Transcribed By: HERIBERTO on 08/01/18917 COPY TO: DEDE PAREKH MD ABDOMEN-1VIEW (KUB) [place] [address] Patient Name: ARTI RODRÍGUEZ MR #: [id number] : 1970 Age/Sex: 47/F Req #: [id number] Adm Physician: Ordered by: DEDE PAREKH MD Report #: [id number] Location: RAD Room/Bed: Procedure: [id number] DX/ABDOMEN-1VIEW (KUB) Exam Date: 01/11/18 Exam Time: 1625 REPORT STATUS: Signed PROCEDURE: X-RAY ABDOMEN - KUB COMPARISON: [facility], DX, ABDOMEN-1VIEW (KUB), 07/15/2017, 15:51. INDICATIONS: KIDNEY STONES FINDINGS: There are no dilated loops of bowel to suggest obstruct ion. 0.3 cm calcific density projected on the lower pole right renal shadow. Possible additional punctate calculus in the interpolar region of the right kidney. There is no evidence of free air. No acute osseous abnormalities are present. An IUD is again observed to the right of the midline. Large calcified leiomyoma again noted. CONCLUSION: Stable 0.3 cm right lower pole renal calculus. Mo Castillo M.D. Dictated by: Mo Castillo M.D. on 01/11/2018 at 17:30 Electronically approved by: Mo Castillo M.D. on 01/11/2018 at 17:30 Dictated By: SUNG CASTILLO MD, MD 29 Transcribed By: GM on 01/11/181729 COPY TO: DEDE PAREKH MD ABDOMEN-1VIEW (KUB) [facility] [address] [place] [address] Patient Name: ARTI RODRÍGUEZ MR #: [id number] : 1970 Age/Sex: 47/F Req #: [id number] Adm Physician: Ordered by: DEDE PAREKH MD Report #: [id number] Location: RAD Room/Bed: Procedure: [id number] DX/ABDOMEN-1VIEW (KUB) Exam Date: 07/15/17 Exam Time: 1550 REPORT STATUS: Signed PROCEDURE: X-RAY ABDOMEN - KUB COMPARISON: [facility], DX, ABDOMEN-1VIEW (KUB), 03/23/2017, 16:48. INDICATIONS: CALCULUS OF KIDNEY FINDINGS: There is a non-obstructed bowel-gas pattern. Stable 3 mm radiopaque density projecting over the inferior pole of the right renal shadow. Other radiopaque densities described on the right kidney on this prior KUB are not clearly seen on the current exam. The previously visualized radiopaque density overlying the left renal shadow is not clearly seen on the current exam. No radiopaque densities project over the expected course of the ureters or bladder. There are no acute osseous abnormalities. Stable 6.6 cm peripherally calcified structure in the mid pelvis, likely representing a fibroid. IUD in place. CONCLUSION: Stable 3 mm radiopaque density projecting over the inferior pole of the right renal shadow. Other radiopaque densities visualized in both kidneys on prior exam are not clearly seen on the current exam. Laura Drew M.D. Dictated by: Laura Drew M.D. on 07/15/2017 at 19:44 Electronically approved by: Laura Drew M.D. on 07/15/2017 at 19:44 Dictated By: LAURA DREW MD 43 Transcribed By: GM on 07/15/171943 COPY TO: DEDE PAREKH MD
--- OUTSIDE RECORDS SUMMARY | 2019-05-04 05:42 | XMS REPORT ---
Author Author Marvin Winters Organization [employer] Address Unknown Phone Unavailable Care Team Providers Care Coal Digger Name Role Phone Marvin Winters CP Unavailable Allergies, Adverse Reactions, Alerts Substance Reaction Event Type N.K.D.A. Info Not Available Non Drug Allergy Encounters Encounter Location Date Sick Visit [facility] Dec 06, 2016 Problems Problem Type Condition ICD-9 Code Onset Dates Condition Status Assessment Bilateral carpal tunnel syndrome G56.03 Active Problem Fibroids, submucosal D25.0 Active Assessment Encounter to establish care Z76.89 Active Assessment Breast cancer screening Z12.39 Active Assessment Cervical cancer screening Z12.4 Active Problem Cervical cancer screening Z12.4 Active Problem Breast cancer screening Z12.39 Active Problem Bilateral carpal tunnel syndrome G56.03 Active Problem Hypoglycemia, unspecified E16.2 Active Problem IUD (intrauterine device) in place Z97.5 Active Problem Carpal tunnel syndrome, unspecified upper limb G56.00 Active Problem Personal history of gestational diabetes Z86.32 Active Medications Medication Code System Code Instructions Start Date End Date Status D[facility] [address]-23 100 MG Orally once every night Dec 06, 2016 Active 2 capsule Atorvastatin Calcium MED[facility]AN [address]-98 10 mg PO every day (qd) February 02, 2016 Active 1 tablet Social History Social History Element Qualifiers Date Reported Tobacco Use: . Are you a: never smoker Dec 06, 2016 Use of recreational / street drugs? . Answer: No Dec 06, 2016 Do you have pets? . Status: No Dec 06, 2016 Marital Status: . Dec 06, 2016 Caffeine intake? . Status: Yes, What type: Coffee, 1 - 2 cup(s) a day Dec 06, 2016 Do you exercise? . Answer: No Dec 06, 2016 Do you drink alcohol? . Status: No Dec 06, 2016 Travel outside [place]: . 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
--- OUTSIDE RECORDS SUMMARY | 2019-05-04 05:42 | XMS REPORT ---
Author Author Marvin Winters Organization [employer] Address Unknown Phone Unavailable Care Team Providers Care Appointment Setter Name Role Phone Marvin Winters CP Unavailable Allergies, Adverse Reactions, Alerts Substance Reaction Event Type N.K.D.A. Info Not Available Non Drug Allergy Encounters Encounter Location Date Sick Visit [facility] [place] [place] Dec 06, 2016 [facility]ick Visit [facility] [place] Dec 27, 2016 [facility] [place] January 06, 2017 Problems Problem Type Condition ICD-9 Code Onset Dates Condition Status Assessment Right lower quadrant abdominal pain R10.31 Active Problem Fibroids, submucosal D25.0 Active Assessment Right ureteral stone N20.1 Active Problem Cervical cancer screening Z12.4 Active Problem Breast cancer screening Z12.39 Active Problem Bilateral carpal tunnel syndrome G56.03 Active Problem Hypoglycemia, unspecified E16.2 Active Problem IUD (intrauterine device) in place Z97.5 Active Problem Carpal tunnel syndrome, unspecified upper limb G56.00 Active Problem Personal history of gestational diabetes Z86.32 Active Medications Medication Code System Code Instructions Start Date End Date Status Dosage Atorvastatin Calcium MEDISPAN [address]-81 10 mg PO every day (qd) February 02, 2016 Active 1 tablet Cipro [facility] [address]-94 500 MG Orally Twice a day Dec 27, 2016 January 06, 2017 Active 1 tablet Gabapentin [facility] [address]-65 100 MG Orally once every night Dec 06, 2016 Active 2 capsule Flagyl [facility]AN [address]-59 500 MG Orally every 8 hrs Dec 27, 2016 January 06, 2017 Active 1 tablet Social History Social History [...] 06, 2017 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
--- OUTSIDE RECORDS SUMMARY | 2019-05-04 05:42 | XMS REPORT ---
Author Author Marvin Winters Organization [employer] Address Unknown Phone Unavailable Care Team Providers Care [employer] Name Role Phone Marvin Winters CP Unavailable Allergies, Adverse Reactions, Alerts Substance Reaction Event Type N.K.D.A. Info Not Available Non Drug Allergy Encounters Encounter Location Date [facility] [facility] [place] Dec 06, 2016 [place] [facility] [place] Dec 27, 2016 Problems Problem Type Condition ICD-9 Code Onset Dates Condition Status Assessment Nausea R11.0 Active Problem Fibroids, submucosal D25.0 Active Assessment Right lower quadrant pain R10.31 Active Assessment Microhematuria R31.29 Active Assessment IUD (intrauterine device) in place Z97.5 Active Problem Cervical cancer screening Z12.4 Active Problem Breast cancer screening Z12.39 Active Problem Bilateral carpal tunnel syndrome G56.03 Active Problem Hypoglycemia, unspecified E16.2 Active Problem IUD (intrauterine device) in place Z97.5 Active Problem Carpal tunnel syndrome, unspecified upper limb G56.00 Active Problem Personal history of gestational diabetes Z86.32 Active Medications Medication Code System Code Instructions Start Date End Date Status Dosage Flagyl MEDISPAN [address]-08 500 MG Orally every 8 hrs Dec 27, 2016 January 06, 2017 Active 1 tablet Cipro MEDISPAN [address]-54 500 MG Orally Twice a day Dec 27, 2016 January 06, 2017 Active 1 tablet Gabapentin MEDISPAN [address]-60 100 MG Orally once every night Dec 06, 2016 Active 2 capsule [facility] [address]-58 10 mg PO every day (qd) February 02, 2016 Active 1 tablet Social History Social History Element Qualifiers Date Reported Tobacco Use: . Are you a: never smoker Dec 27, 2016 Use of recreational / street drugs? . Answer: No Dec 27, 2016 Do you have pets? . Status: No Dec 27, 2016 Marital Status: . Dec 27, 2016 Caffeine intake? . Status: Yes, What type: Coffee, 1 - 2 cup(s) a day Dec 27, 2016 Do you exercise? . Answer: No Dec 27, 2016 Do you drink alcohol? . Status: No Dec 27, 2016 Travel outside [place]: . no Dec 27, 2016 Occupation: . self employed ( [employer]) Dec 27, 2016 Vital Signs Date/Time: Dec 27, 2016 Weight 154.5 lbs Height 58 in Temperature 97.0 F Blood Pressure Diastolic 106 mm Hg Blood Pressure Systolic 177 mm Hg Immunizations Vaccine Administration Date Torodol 30 mg Dec 27, 2016 Summary Purpose [employer] Submission
[2019-05-04 08:55] VITALS: BP 116/67
--- NOTE | 2019-05-04 14:58 | Operative Report ---
DATE OF PROCEDURE: 05/04/2019 SURGEON: Florentino Thayer MD PREOPERATIVE DIAGNOSIS: Right kidney stone. POSTOPERATIVE DIAGNOSIS: Right kidney stone. PROCEDURES: 1. Staged shock wave lithotripsy. 2. Supervision of fluoroscopy. ANESTHESIA: General. ESTIMATED BLOOD LOSS: Minimal. COMPLICATIONS: None. INDICATIONS: Ms. Link is a very pleasant 48-year-old female with intermittently symptomatic right-sided kidney stone. She and I had a long discussion of alternatives, risks, and benefits of including nothing, shock wave lithotripsy, ureteroscopy, percutaneous surgery or open surgery. She voiced understanding of the options, alternatives, risks, and benefits and elected to proceed with shock wave lithotripsy. PROCEDURE IN DETAIL: After informed consent was obtained, the patient was taken to the operative suite, placed supine on the operating table, underwent general anesthesia by the Anesthesia service. Stone was localized in the X, Y and Z planes. Total of 3000 shocks on maximum power setting of 6 were delivered to the stone. The patient tolerated the procedure well and was transported to recovery room in excellent condition. Supervision of fluoroscopy and interpretation of retrograde pyelography: I was present for the entire procedure and supervised fluoroscopy, there was no radiologist present. Florentino Thayer MD ES/MODL /[id number]
== END | disposition home or self-care (01) ==
LOC: OR 05:05
PROVIDERS: ATTEND Urology
DX: N20.0 Calculus of kidney (principal); I10 Essential (primary) hypertension; K21.9 Gastro-esophageal reflux disease without esophagitis; R51 Headache; Z01.810 Encounter for preprocedural cardiovascular examination; Z79.82 Long term (current) use of aspirin
CPT/HCPCS: 50590; 74018; 81025; 93005; J0696; J1100; J2001; J2250; J2405; J2704; J3010

== ENCOUNTER → 2019-07-17 | Outpatient (CLI) | payer OTHER ==
[~2019-07-17] MED LIST changes: -CEFTRIAXONE SOD 1 GM/NS 50 ML 50 ML IV ONE; -DEXAMETHASONE SOD PHOS INJ 4 MG/ML VIAL ONE; -FENTANYL CITRATE/PF 100MCG/2 ML INJ ONE; -IOPAMIDOL 610MG/1ML 300 MG/ML VIAL IV ONE; -LIDOCAINE HCL 2% LOCAL INJ 5 ML SDV VIAL INJ ONE; -MIDAZOLAM HCL 2 MG/2 ML VIAL ONE; -ONDANSETRON HCL INJ 2MG/ML 2ML 2 MG/ML VIAL ONE; -PROPOFOL IV EMULSION 10 MG/ML 20 ML VIAL ONE; -SEVOFLURANE INHAL SOLN 250 ML PEN BTL ONE
--- NOTE | 2019-07-17 08:58 | Diagnostic Imaging Report ---
Abdomen, 1 view. History: Abdominal pain. Findings: Punctate calcifications are again projected over the right kidney. Air is scattered throughout nondilated small and large bowel. There are no masses. The osseous structures are intact. IUD and calcified fibroid are again noted in the pelvis. IMPRESSION: Small right renal calculi without significant change. Signed by: Kelvin Otero on 07/17/2019 8:55 AM
== END ==
LOC: RAD 07:38
PROVIDERS: ATTEND Urology
DX: N20.0 Calculus of kidney (principal)
CPT/HCPCS: 74018

== ENCOUNTER → 2020-02-26 | Outpatient (CLI) | payer OTHER ==
--- NOTE | 2020-02-26 13:48 | Diagnostic Imaging Report ---
Abdomen, one view on 2 radiographs Clinical indication: Hydronephrosis Comparison: 11/20/2019 Findings: No definite renal calculi are identified. Bowel gas pattern is nonobstructive. Calcified fibroid is again noted in the pelvis. No acute osseous abnormalities are identified. Impression: No definite renal calculi identified bilaterally. Signed by: Shashank Walton MD on 02/26/2020 1:44 PM
== END ==
LOC: RAD 12:39
PROVIDERS: ATTEND Urology
DX: N13.30 Unspecified hydronephrosis (principal)
CPT/HCPCS: 74018; 81025